=== PATIENT | male | born 1950 | race Caucasian/White ===

== ENCOUNTER → 2016-09-16 | Outpatient (CLI) | payer BC | END | disposition home or self-care (01) | LOC: MW.CHUR 09:52 | PROVIDERS: ATTEND Urology | DX: R97.20 Elevated prostate specific antigen [PSA] (principal); R35.0 Frequency of micturition | CPT/HCPCS: 36415; 84153 ==

== ENCOUNTER 2022-01-11 06:52 | Day surgery (SDC) | payer MEDICARE, BC ==
[~2022-01-11 06:52] MED LIST: Lactated Ringers 1,000 ML IV SCH
[2022-01-11] MEDS ORDERED: Lidocaine 2% 5 ML SDV ONE (07:38)
[2022-01-11] MEDS ORDERED: Propofol 200 MG/20 ML SDV ONE ×2 (07:38→08:21)
[2022-01-11] MEDS ORDERED: fentaNYL 100 MCG/2 ML SDV ONE (07:39)
[2022-01-11 09:47] VITALS: BP 120/78; PULSE 54
== END 2022-01-11 09:28 | disposition home or self-care (01) ==
LOC: MW.SDS 06:52
PROVIDERS: ATTEND Surgery
DX: Z12.11 Encounter for screening for malignant neoplasm of colon (principal); D12.2 Benign neoplasm of ascending colon; D12.4 Benign neoplasm of descending colon; K57.30 Diverticulosis of large intestine without perforation or abscess without bleeding; C61 Malignant neoplasm of prostate; Q85.8 Other phakomatoses, not elsewhere classified; N52.9 Male erectile dysfunction, unspecified; E78.00 Pure hypercholesterolemia, unspecified; I10 Essential (primary) hypertension; E66.9 Obesity, unspecified; Z86.010 Personal history of colon polyps; Z79.899 Other long term (current) drug therapy; Z98.890 Other specified postprocedural states; Z68.31 Body mass index [BMI] 31.0-31.9, adult
CPT/HCPCS: 45380; 45385; J2704; J3010; J7120; 00812